=== PATIENT | male | born 2000 | race Caucasian/White ===

== ENCOUNTER 2023-04-12 21:29 | Emergency (ER) | payer OTHER ==
[~2023-04-12] VITALS: Ht 175.3 cm; Wt 70.3 kg
[~2023-04-12 21:29] MED LIST: AMOX50SU PO; AZIT200SU PO; CITA20 PO; CODACEE120 PO; PRED15SY PO; RXCODACESY PO; SULF10OPSA OU; SULTRIEL PO
[2023-04-12 21:33] VITALS: BP 145/80
== END 2023-04-12 21:54 | disposition left against medical advice (07) ==
LOC: ER 21:29
DX: R10.13 Epigastric pain (principal); R11.2 Nausea with vomiting, unspecified; J02.9 Acute pharyngitis, unspecified; Z53.21 Procedure and treatment not carried out due to patient leaving prior to being seen by health care provider
CPT/HCPCS: 99284-25

== ENCOUNTER 2024-01-15 09:02 | Emergency (ER) | payer SELFPAY ==
[~2024-01-15] VITALS: Ht 175.3 cm; Wt 65.8 kg
[2024-01-15 09:16] VITALS: BP 135/86
== END 2024-01-15 12:00 | disposition home or self-care (01) ==
LOC: ER 09:02
DX: L42 Pityriasis rosea (principal); Z79.899 Other long term (current) drug therapy; Z87.891 Personal history of nicotine dependence